=== PATIENT | male | born 1950 | race Two or more races ===

== ENCOUNTER 2018-07-04 11:22 | Emergency (ER) | payer MEDICARE, MEDICAID ==
[~2018-07-04] VITALS: Ht 167.6 cm; Wt 124.1 kg
[~2018-07-04 11:22] MED LIST: AMIT25TA9 PO; APIX2.5T OR; ATOR40TA52 PO; CAR125T PO; CINA30TA2 PO; FERR-20 PO; GABA100C9 PO; GLIP-115 PO; LISI-275 PO; SEVE800T8 PO
[2018-07-04 13:42] LABS: Basophils # (auto) 0.1 uL; Eosinophils # (auto) 0.5 uL; Lymphocytes # (auto) 1.3 uL; Lymphocytes % (auto) 13.9 % (10.0-50.0); Mean Corpuscular Hemoglobin 31.1 pg (28.0-32.0); Mean Corpuscular Hgb Conc. 33.2 g/dL (32.0-36.0)
[2018-07-04 13:44] LABS: Eosinophils % (auto) 4.8 % (0.0-7.0); Mean Corpuscular Volume 93.7 fL (80.0-100.0); Monocytes # (auto) 0.8 uL; Monocytes % (auto) 8.6 % (0.0-12.0); Neutrophils # (auto) 6.9 uL; Neutrophils % (auto) 71.7 % (37.0-80.0); Nucleated Red Blood Cells % 0.1 %; Platelet Count (auto) 287 10^3/uL (140-450); Red Blood Cells 2.56 10^6/uL (4.5-5.90); Red Cell Distribution Width 16.9 % (11.8-14.3); White Blood Cell 9.6 10^3/uL (4.4-10.8)
[2018-07-04 13:49] LABS: Albumin 3.4 g/dL (3.4-5.0); Calcium 9.3 mg/dL (8.5-10.1)
[2018-07-04 13:52] LABS: BUN/Creatinine Ratio 6.5; Bilirubin, Total 0.6 mg/dL (0.2-1.0); Total Protein 8.3 g/dL (6.4-8.2)
[2018-07-04 13:55] LABS: INR 1.01 (0.9-1.15); Partial Thromboplastin Time 27.5 sec (23.78-33.04); Prothrombin Time 10.8 sec (9.27-12.13)
[2018-07-04 15:45] VITALS: BP 110/62
== END 2018-07-04 16:02 | disposition home or self-care (01) ==
LOC: ER 11:22
DX: D64.9 Anemia, unspecified (principal); E11.22 Type 2 diabetes mellitus with diabetic chronic kidney disease; I13.2 Hypertensive heart and chronic kidney disease with heart failure and with stage 5 chronic kidney disease, or end stage renal disease; I50.9 Heart failure, unspecified; N18.6 End stage renal disease; E11.65 Type 2 diabetes mellitus with hyperglycemia
CPT/HCPCS: 36415; 80053; 85025; 85610; 85730